=== PATIENT | female | born 1955 | race Caucasian/White ===

== ENCOUNTER 2018-04-29 18:38 | Emergency (ER) | payer MEDICAID ==
[~2018-04-29] VITALS: Ht 175.3 cm; Wt 66.0 kg
[2018-04-29] MEDS ORDERED: CEPHALEXIN 500MG CAPSULE PO ONE (19:30)
[2018-04-29] MEDS ORDERED: OLANZAPINE 10MG TABLET ODT PO ONE (20:15)
[2018-04-29] MEDS ORDERED: NITROFURANTOIN 100MG M/M CAPSULE PO ONE (20:15)
[2018-04-30 04:11] VITALS: BP 114/61
[2018-04-30 07:33] LABS: BASOPHILS % 0.8 % (0.0-2.0); EOSINOPHILS % 2.5 % (0.0-5.0); HEMATOCRIT. 36.3 % (36.0-48.0); HEMOGLOBIN. 12.1 g/dL (12.0-16.0); MEAN CORPUSCULAR HEMOGLOBIN 28.2 pg (28.0-32.0); MEAN CORPUSCULAR VOLUME 84.9 fL (81.0-99.0); MEAN PLATELET VOLUME 7.6 fl (7.4-10.4); MONOCYTES % 8.4 % (2.0-8.0); NEUTROPHILS % 46.3 % (40.0-76.0); PLATELET 236 x1000/uL (130-400); RED BLOOD CELL COUNT 4.28 mill/uL (4.2-5.4); RED CELL DISTRIBUTION WIDTH 15.3 % (11.6-14.6)
[2018-04-30 07:43] LABS: CHLORIDE 107 mEq/L (98-107)
[2018-04-30 07:46] LABS: ETHANOL BLOOD < 10 mg/dL
[2018-04-30 08:53] LABS: *AMPHETAMINES SCREEN URINE NEGATIVE (NEGATIVE); *BARBITURATES SCREEN URINE NEGATIVE (NEGATIVE); *BENZODIAZEPINES SCREEN URINE NEGATIVE (NEGATIVE); *COCAINE SCREEN URINE NEGATIVE (NEGATIVE); CANNABINOID URINE SCREEN NEGATIVE (NEGATIVE); OPIATES URINE SCREEN NEGATIVE (NEGATIVE); PHENCYCLIDINE URINE SCREEN NEGATIVE (NEGATIVE)
[2018-04-30 08:54] LABS: METHADONE URINE SCREEN NEGATIVE (NEGATIVE)
== END 2018-04-30 12:17 | disposition home or self-care (01) ==
LOC: ER 20:26
DX: N30.00 Acute cystitis without hematuria (principal); Z59.0 Homelessness; Z79.899 Other long term (current) drug therapy
CPT/HCPCS: 36415; 80048; 80305; 80307; 80329; 85025; 99284; G0482